=== PATIENT | female | born 1975 | race Caucasian/White ===

== ENCOUNTER 2024-08-12 00:53 | Inpatient (IN) | payer OTHER, MEDICAID ==
[~2024-08-12] VITALS: Ht 160 cm; Wt 49.9 kg
[2024-08-12 04:44] LABS: BASOPHILS % 0.2 % (0.0-2.0); EOSINOPHILS % 2.3 % (0.0-5.0); HEMATOCRIT. 38.7 % (36.0-48.0); HEMOGLOBIN. 13.3 g/dL (12.0-16.0); LYMPHOCYTES % 25.5 % (20.0-50.0); MEAN CORPUSCULAR HGB CONC 34.2 g/dL (31.0-37.0); MEAN CORPUSCULAR VOLUME 84.7 fL (81.0-99.0); MEAN PLATELET VOLUME 7.8 fl (7.4-10.4); MONOCYTES % 7.5 % (2.0-8.0); NEUTROPHILS % 64.5 % (40.0-76.0); PLATELET 267 x1000/uL (130-400); RED BLOOD CELL COUNT 4.57 mill/uL (4.2-5.4); RED CELL DISTRIBUTION WIDTH 13.5 % (11.6-14.6); WHITE BLOOD COUNT 6.3 x1000/uL (4.5-11.0)
[2024-08-12 04:52] LABS: CHLORIDE 103 mEq/L (98-107); POTASSIUM 4.3 mEq/L (3.5-5.1); SODIUM 135 mEq/L (136-145)
[2024-08-12 04:53] LABS: CALCIUM 8.4 mg/dL (8.7-10.4); CARBON DIOXIDE 26 mEq/L (21-32)
[2024-08-12 04:55] LABS: INR 0.9
[2024-08-12 04:56] LABS: HCG SCREEN NEGATIVE
[2024-08-12 04:58] LABS: CREATININE 0.7 mg/dL (0.6-1.0); GLUCOSE 355 mg/dL (70-105); UREA NITROGEN BLOOD 11 mg/dL (9-23)
[2024-08-12 05:00] LABS: ALANINE AMINOTRANSFERASE 25 IU/L (10-49); ALBUMIN 3.7 g/dL (3.2-4.8); ASPARTATE AMINOTRANSFERASE 20 IU/L (<34); BILIRUBIN DIRECT 0.1 mg/dL (<=3.0); BILIRUBIN TOTAL 0.5 mg/dL (0.1-1.0); PROTEIN TOTAL 6.3 g/dL (6.0-8.3)
[2024-08-12] MEDS: MORPHINE SULFATE 4 MG/ML INJ (FOR IV/IM USE) IV ONE (05:24)
[2024-08-12 08:00] VITALS: BP 156/84; PULSE 90; RESP 18; TEMP 36.6; O2SAT 99
[2024-08-12 08:15] LABS: CLARITY URINE CLEAR (CLEAR); COLOR URINE YELLOW (YELLOW); GLUCOSE URINE 3+ (NEGATIVE); KETONES URINE NEGATIVE (NEGATIVE); LEUKOCYTE ESTERASE URINE NEGATIVE (NEGATIVE); NITRITE URINE NEGATIVE (NEGATIVE); OCCULT BLOOD URINE NEGATIVE (NEGATIVE); PH URINE 7.5 (4.5-8.0); PROTEIN URINE 1+ (NEGATIVE); SPECIFIC GRAVITY URINE 1.036 (1.005-1.030)
[2024-08-12 08:41] LABS: SQUAMOUS EPITHELIAL CELL URINE FEW /lpf (RARE/1+)
[2024-08-12 08:42] LABS: BACTERIA URINE NONE SEEN; RBC URINE 0-2 /hpf (0-2)
[2024-08-12] MEDS ORDERED: ACETAMINOPHEN 325MG TABLET PO PRN ×2 (09:30)
[2024-08-12] MEDS ORDERED: CLONIDINE 0.1MG TABLET PO PRN (09:30)
[2024-08-12] MEDS ORDERED: DEXTROSE 50% WATER 50ML SYRINGE IV PRN (09:30)
[2024-08-12] MEDS ORDERED: IPRATROPIUM/ALBUTEROL 0.5-3(2.5)MG/3ML NEB HHN PRN (09:30)
[2024-08-12] MEDS ORDERED: DOCUSATE SODIUM 100MG CAPSULE PO PRN (09:30)
[2024-08-12] MEDS ORDERED: GUAIFENESIN 200MG/10ML SUGAR FREE UDC PO PRN (09:30)
[2024-08-12] MEDS ORDERED: MAGNESIUM/ALUMINUM HYDROXIDE/SIMETHICONE 30ML UDC PO PRN (09:30)
[2024-08-12] MEDS ORDERED: ONDANSETRON HCL 4MG/2ML INJ IV PRN (09:30)
[2024-08-12] MEDS: ENOXAPARIN 40MG/0.4ML SYR SUBCUT SCH (10:00)
[2024-08-12 12:00] VITALS: BP 139/88; PULSE 83; RESP 18; TEMP 36.8; O2SAT 99
[2024-08-12] MEDS: BLOOD SUGAR DIAGNOSTIC STRIP TEST SCH (12:20)
[2024-08-12] MEDS: INSULIN LISPRO 100 UNITS/ML SUBCUT SCH (12:50)
[2024-08-12] MEDS: HYDROCODONE/ACETAMINOPHEN 10/325MG TABLET PO NR (13:29)
[2024-08-12 15:00] VITALS: BP 156/84; PULSE 90; RESP 18; TEMP 36.6
[2024-08-12 16:00] VITALS: BP 138/84; PULSE 93; RESP 18; TEMP 36.4; O2SAT 97
[2024-08-12] MEDS: MORPHINE SULFATE 2 MG/ML INJ (NOT FOR IM USE) IV NR (21:02)
[2024-08-12] MEDS: HYDROXYZINE 25MG TABLET PO NR (22:16)
[2024-08-13] VITALS: BP 119/71; PULSE 95; RESP 18; TEMP 35.9; O2SAT 100
[2024-08-13 04:00] VITALS: BP 137/86; PULSE 95; RESP 20; TEMP 36.3; O2SAT 96
[2024-08-13 06:45] LABS: BASOPHILS % 0.3 % (0.0-2.0); EOSINOPHILS % 3.4 % (0.0-5.0); HEMATOCRIT. 41.8 % (36.0-48.0); HEMOGLOBIN. 14.4 g/dL (12.0-16.0); LYMPHOCYTES % 34.3 % (20.0-50.0); MEAN CORPUSCULAR HEMOGLOBIN 29.4 pg (28.0-32.0); MEAN CORPUSCULAR HGB CONC 34.4 g/dL (31.0-37.0); MEAN CORPUSCULAR VOLUME 85.4 fL (81.0-99.0); MEAN PLATELET VOLUME 8.8 fl (7.4-10.4); MONOCYTES % 7.5 % (2.0-8.0); NEUTROPHILS % 54.5 % (40.0-76.0); PLATELET 271 x1000/uL (130-400); RED BLOOD CELL COUNT 4.89 mill/uL (4.2-5.4); RED CELL DISTRIBUTION WIDTH 13.5 % (11.6-14.6)
[2024-08-13 06:52] LABS: CHLORIDE 102 mEq/L (98-107); POTASSIUM 4.4 mEq/L (3.5-5.1); SODIUM 136 mEq/L (136-145)
[2024-08-13 06:53] LABS: CALCIUM 8.9 mg/dL (8.7-10.4); CARBON DIOXIDE 25 mEq/L (21-32)
[2024-08-13 06:57] LABS: CREATININE 0.7 mg/dL (0.6-1.0)
[2024-08-13 06:58] LABS: GLUCOSE 207 mg/dL (70-105); UREA NITROGEN BLOOD 13 mg/dL (9-23)
[2024-08-13 08:00] VITALS: BP 114/76; PULSE 90; RESP 18; TEMP 36.4; O2SAT 97
[2024-08-13] MEDS: KETOROLAC 15MG/ML VIAL IV PRN (09:08)
[2024-08-13 10:35] LABS: *AMPHETAMINES SCREEN URINE NEGATIVE (NEGATIVE); *BARBITURATES SCREEN URINE NEGATIVE (NEGATIVE); *BENZODIAZEPINES SCREEN URINE NEGATIVE (NEGATIVE); *COCAINE SCREEN URINE NEGATIVE (NEGATIVE); METHADONE URINE SCREEN NEGATIVE (NEGATIVE); OPIATES URINE SCREEN NEGATIVE (NEGATIVE); PHENCYCLIDINE URINE SCREEN NEGATIVE (NEGATIVE)
[2024-08-13 10:36] LABS: CANNABINOID URINE SCREEN NEGATIVE (NEGATIVE); ECSTASY MDMA SCREEN URINE NEGATIVE (NEGATIVE)
[2024-08-13 12:00] VITALS: BP 122/78; PULSE 87; RESP 18; TEMP 36.4; O2SAT 98
[2024-08-13] MEDS ORDERED: INSU100I28 SQ (14:47)
[2024-08-13] MEDS ORDERED: SERT25TA74 MT (14:48)
[2024-08-13 20:00] VITALS: BP 136/74; PULSE 108; RESP 19; TEMP 36.2; O2SAT 100
[2024-08-13] MEDS: MORPHINE SULFATE 2 MG/ML INJ (NOT FOR IM USE) IV NR (23:53)
[2024-08-14] VITALS: BP 122/71; PULSE 86; RESP 16; TEMP 36.3; O2SAT 100
[2024-08-14 04:00] VITALS: BP 106/68; PULSE 90; RESP 17; TEMP 36.7; O2SAT 97
[2024-08-14 08:00] VITALS: BP 123/64; PULSE 88; RESP 16; TEMP 36.7; O2SAT 100
[2024-08-14] MEDS: SERTRALINE HCL 25MG TABLET PO SCH (09:02)
[2024-08-14] MEDS: INSULIN GLARGINE 100 UNITS/ML SUBCUT SCH (09:32)
[2024-08-14] MEDS ORDERED: LIDO-53 TP (10:05)
[2024-08-14 10:23] VITALS: BP 123/64; PULSE 88; TEMP 98; O2SAT 100
[2024-08-14 12:00] VITALS: BP 132/76; PULSE 90; RESP 17; TEMP 36.6; O2SAT 98
== END 2024-08-14 14:00 | disposition home or self-care (01) | DRG 552 ==
LOC: ER 00:53 → 6EST 05:52 → ENRESERV 07:05
PROVIDERS: ADMIT Hospitalist; ATTEND Hospitalist
DX: M54.31 Sciatica, right side (principal); E11.319 Type 2 diabetes mellitus with unspecified diabetic retinopathy without macular edema; F32.9 Major depressive disorder, single episode, unspecified; E11.9 Type 2 diabetes mellitus without complications; H54.62 Unqualified visual loss, left eye, normal vision right eye; H53.2 Diplopia; F15.90 Other stimulant use, unspecified, uncomplicated; Z91.148 Patient's other noncompliance with medication regimen for other reason; Z79.4 Long term (current) use of insulin; Z79.899 Other long term (current) drug therapy
CPT/HCPCS: 36415; 74176; 80048; 80076; 80305; 81003; 82962; 83036; 84703; 85025; 97162; 97165; 99285; A4606; J1650; J1815; J1885; J2270